=== PATIENT | female | born 1970 | race Caucasian/White ===

== ENCOUNTER 2022-02-12 13:16 | Emergency (ER) | payer MEDICAID ==
[~2022-02-12] VITALS: Ht 152.4 cm; Wt 103.9 kg
[~2022-02-12 13:16] MED LIST: LEVO125T8; VENL75CA; WELSR100
[2022-02-12 14:35] VITALS: BP_SYST 137
--- NOTE | 2022-02-12 14:35 | NUR ---
Pt triaged in waiting room; awaiting bed placement.
--- NOTE | 2022-02-12 15:11 | NUR ---
All cares assumed (AZRA Whiteside)
--- NOTE | 2022-02-12 15:12 | NUR ---
c/c patient states on Saturday02.09.2022 she fell asleep on her left side and awoke a few hours later with her left hip being sore and numb. Since then she c/o 9/10 left sided hip pain. Denies trauma, denies falling onto side. Patient AOx4, in no acute distress and or discomfort.
--- NOTE | 2022-02-12 15:35 | NUR ---
Patient taken to Xray for exam
[2022-02-12] MEDS ORDERED: KETOROLAC TROMETHAMINE 60 MG/2 ML VIAL IM ONE (15:45)
[2022-02-12] MEDS ORDERED: HYDROcodone/ACETAMIN 10-325 MG TAB PO ONE (15:45)
--- NOTE | 2022-02-12 15:59 | NUR ---
Patient returned from Xray stable
--- NOTE | 2022-02-12 16:30 | NUR ---
Medicated per order, patient tolerated well.
[2022-02-12 16:36] LABS: BASOPHILS % (AUTO) 0.4 % (0.0-2.0); EOSINOPHILS # (AUTO) 0.2 K/uL (0.0-0.4); EOSINOPHILS % (AUTO) 2.5 % (0.0-4.0); HEMATOCRIT 36.8 % (36-48); HEMOGLOBIN 12.4 g/dL (12.0-16.0); LYMPHOCYTES # (AUTO) 1.6 K/uL (1.0-5.5); LYMPHOCYTES % (AUTO) 26.4 % (20.5-51.5); MEAN CORPUSCULAR HEMOGLOBIN 29 pg (27-31); MEAN CORPUSCULAR HGB CONC 34 % (32-36); MEAN CORPUSCULAR VOLUME 84 fL (79.0-98.0); MONOCYTES # (AUTO) 0.4 K/uL (0.0-1.0); MONOCYTES % (AUTO) 7.2 % (1.7-9.3); NEUTROPHILS # (AUTO) 3.8 K/uL (1.8-7.7); NEUTROPHILS % (AUTO) 63.5 % (40.0-70.0); PLATELET COUNT (AUTO) 225 K/uL (130-430); RED BLOOD CELL COUNT(AUTO) 4.36 MIL/uL (4.2-6.2); RED CELL DISTRIBUTION WIDTH 14.1 % (9.0-15.0); WHITE BLOOD COUNT (AUTO) 6.1 K/uL (4.8-10.8)
[2022-02-12 16:45] LABS: CALCIUM 8.9 mg/dL (8.4-11.0); CREATININE 0.87 mg/dL (0.55-1.30); POTASSIUM 3.8 mmol/L (3.5-5.1)
[2022-02-12 16:50] LABS: TOTAL BILIRUBIN 0.6 mg/dL (0.0-1.0)
[2022-02-12 16:51] LABS: ALBUMIN 3.7 g/dL (3.4-4.8); URIC ACID 4.7 mg/dL (2.4-7.0)
[2022-02-12 16:52] LABS: C-REACTIVE PROTEIN QUANT 0.4 mg/dL (0-0.5)
--- NOTE | 2022-02-12 17:00 | NUR ---
Patient remains stable in bed, no acute distress noted.
[2022-02-12] MEDS ORDERED: HYDR-3917 PO (17:22)
[2022-02-12] MEDS ORDERED: IBUP-1969 PO (17:22)
[2022-02-12] MEDS ORDERED: MORPHINE 4 MG INJ. 4 MG/ML VIAL IM ONE (17:30)
[2022-02-12 17:42] LABS: ERYTHROCYTE SEDIMENTATION RATE 18 MM/HR (0-20)
[2022-02-12 17:50] VITALS: BP_SYST 139
--- NOTE | 2022-02-12 17:52 | NUR ---
Patient given written and verbal discharge instructions and verbalizes understanding. ER MD discussed with patient the results and treatment provided. Patient in stable condition. ID arm band removed. Rx of NORCO AND IBUPROFEN given. Patient educated on pain management and to follow up with PMD. Pain Scale 0/10. Opportunity for questions provided and answered. Medication side effect fact sheet provided.
== END 2022-02-12 17:50 | disposition home or self-care (01) ==
LOC: SED 13:16
DX: M25.552 Pain in left hip (principal); J45.909 Unspecified asthma, uncomplicated
CPT/HCPCS: 36415; 73502; 80053; 81025; 84550; 85025; 85651; 86140; 96372; 99284; J1885; J2270